=== PATIENT | female | born 1950 | race Caucasian/White ===

== ENCOUNTER 2021-04-01 13:29 | Outpatient (REF) | payer MEDICARE, BC, SELFPAY ==
[2021-04-01 20:03] LABS: TSH 0.92 uIU/mL (0.36-3.74)
[2021-04-01 20:38] LABS: COMMENT (LAB VIEW ONLY) 184.56 mg/dL; Microalb ug/mg Crea 10.1 ug/mg Cr
== END 2021-04-01 13:30 | disposition home or self-care (01) ==
LOC: LBN 13:29
PROVIDERS: PCP Internal Medicine; Referring Provider Internal Medicine; Visit Provider Internal Medicine
DX: I10 Essential (primary) hypertension (principal); E11.9 Type 2 diabetes mellitus without complications; E78.00 Pure hypercholesterolemia, unspecified; Z79.4 Long term (current) use of insulin; R63.5 Abnormal weight gain
CPT/HCPCS: 82043; 82570; 84443

== ENCOUNTER 2023-01-31 11:17 | Outpatient (CLI) | payer MEDICARE, BC, SELFPAY ==
--- NOTE | 2023-01-31 11:15 | RT.EKG_ITS ---
APPROVED REPORT Exam: Resting ECG Reason for Exam: Pre-Op Patient Location: O HR:88 bpm ECG Measurements Heart Rate 88 AXIS NJ 127 P 40 QRSd 73 QRS 6 QT 383 T 62 QTc 464 Conclusion Sinus rhythm...normal P axis, V-rate 50- 99 Normal Electrocardiogram
== END 2023-01-31 11:18 | disposition home or self-care (01) ==
LOC: DI.KIM 11:23
PROVIDERS: PCP Nurse Practitioner Adult Health; Visit Provider Nurse Practitioner Adult Health
DX: Z01.818 Encounter for other preprocedural examination (principal)
CPT/HCPCS: 93010

== ENCOUNTER 2023-01-31 13:02 | Outpatient (REF) | payer MEDICARE, BC, SELFPAY ==
[2023-01-31 15:51] LABS: Abs Immature Grans 0.03 10^3/uL (0.0-0.06); Absolute Basophil Count 0.02 10^3/uL (0.0-0.2); Absolute Eosinophil Count 0.03 10^3/uL (0.0-0.7); Absolute Lymphocyte Count 1.35 10^3/uL (1.2-3.4); Absolute Monocyte Count 0.33 10^3/uL (0.1-0.8); Absolute Neutrophil Count 3.21 10^3/uL (1.2-6.7); Basophils % 0.4; Eosinophils % 0.6; HCT 36.1 % (36.0-46.0); HGB 11.8 g/dL (11.2-15.7); Immature Grans % 0.6; Lymphocytes % 27.2; MCH 27.4 pg (27.0-33.0); MCHC 32.7 % (32.0-36.0); MCV 84 fL (80-95); MPV 12.5 fL (8.0-11.0); Monocytes % 6.6; Neutrophils % 64.6; Platelet Count 228 10^3/uL (130-400); RBC 4.31 10^6/uL (3.93-5.22); RDW 14.5 % (11.7-14.6); RDW-SD 44.1 fL; WBC 4.97 10^3/uL (4.4-10.8)
[2023-01-31 16:22] LABS: ALT 58 U/L (14-59); AST 48 U/L (15-37); Albumin 3.7 g/dL (3.4-5.0); Alkaline Phosphatase 85 U/L (46-116); Anion Gap 10.2 mmol/L (3-11); BUN 14 mg/dL (7-18); Bilirubin, Total 0.5 mg/dL (0.2-1.0); CO2 25.8 mmol/L (21.0-32.0); CREATININE 0.9 mg/dL (0.55-1.02); Calcium 9.5 mg/dL (8.5-10.1); Chloride 106 mmol/L (98-107); Estimated GFR 68.77 (mL/min/1.73m2); Glucose 235 mg/dL (74-106); Potassium 4.1 mmol/L (3.5-5.1); Sodium 142 mmol/L (136-145); Total Protein 7.3 g/dL (6.4-8.2)
[2023-01-31 18:40] LABS: Hemoglobin A1C 9.8 % (<5.7)
== END 2023-01-31 13:03 | disposition home or self-care (01) ==
LOC: LBN 13:02
PROVIDERS: PCP Nurse Practitioner Adult Health; Referring Provider Nurse Practitioner Adult Health; Visit Provider Nurse Practitioner Adult Health
DX: E11.65 Type 2 diabetes mellitus with hyperglycemia (principal); Z79.4 Long term (current) use of insulin; C54.1 Malignant neoplasm of endometrium; R91.1 Solitary pulmonary nodule
CPT/HCPCS: 80053; 83036; 85025